=== PATIENT | female | born 1980 ===

== ENCOUNTER 2024-12-01 12:30 | Inpatient (IN) | payer OTHER ==
[~2024-12-01] VITALS: Ht 154.9 cm; Wt 72.6 kg
[2024-12-01] MEDS ORDERED: PROZAC40 MG PO (13:49)
[2024-12-01] MEDS ORDERED: WELLBUTRIN XL300 MG PO (13:50)
[2024-12-01] MEDS ORDERED: NORVASC5 MG PO (13:50)
[2024-12-01] MEDS ORDERED: ATIVAN1 M1 PO (13:51)
[2024-12-01] MEDS ORDERED: RISPERDAL2 MG PO (13:51)
[2024-12-01 13:57] VITALS: BP 131/88
[2024-12-07] MEDS ORDERED: levoFLOXacin IN DEXTROSE 5 % 5 MG/ML PIGGYBAG IV ONE (10:45)
[2024-12-07] MEDS ORDERED: METRONIDAZOLE/SODIUM CHLORIDE 500 MG/100 ML PIGGYBACK IV ONE (10:45)
[2024-12-07] MEDS ORDERED: SUGAMMADEX SODIUM 200 MG/2 ML VIAL IV ONE (12:30)
[2024-12-07] MEDS ORDERED: ONDANSETRON HCL 2 MG/ML VIAL IV PRN (12:45)
[2024-12-07] MEDS ORDERED: MORPHINE SULFATE 4 MG/ML CARTRIDGE IV PRN (12:45)
[2024-12-07] MEDS ORDERED: DEXTROSE 50 % IN WATER 0.5 G/ML DISP.SYRIN IV PRN (12:45)
[2024-12-07] MEDS ORDERED: RINGERS SOLUTION,LACTATED 1,000 ML IV SCH (12:45)
[2024-12-07] MEDS ORDERED: OxyCODONE HCL 5 MG TABLET (ROXICODONE) PO PRN (12:45)
[2024-12-07] MEDS ORDERED: HYOSCYAMINE SULFATE 0.125 MG TAB.SUBL SL SCH (13:00)
[2024-12-07] MEDS ORDERED: SIMETHICONE 125 MG CAPSULE PO SCH (13:00)
[2024-12-07] MEDS ORDERED: MORPHINE SULFATE 4 MG/ML VIAL IV ONE (13:05)
[2024-12-07] MEDS ORDERED: ACETAMINOPHEN 500 MG GEL..CAP PO SCH (14:00)
[2024-12-07 15:39] LABS: HEMATOCRIT 39.1 % (36.0-45.00); MEAN CORPUSCULAR HEMOGLOBIN 28.3 pg (27.00-32.0); MEAN CORPUSCULAR HGB CONC 33.3 g/dl (32.0-36.0); PLATELET COUNT 221 K/uL (150-450); RED CELL DISTRIBUTION WIDTH 13.8 % (11.5-14.5)
[2024-12-07] MEDS ORDERED: GABAPENTIN 300 MG CAPSULE PO SCH (17:00)
[2024-12-07] MEDS ORDERED: METOCLOPRAMIDE HCL 5 MG/ML VIAL IV SCH (17:00)
[2024-12-07] MEDS ORDERED: POLYETHYLENE GLYCOL 3350 17 GM BLIST.PACK PO SCH (17:00)
[2024-12-07 17:32] VITALS: BP 118/76; O2SAT 98
[2024-12-07] MEDS ORDERED: CELECOXIB 200 MG CAPSULE PO SCH (21:00)
[2024-12-07] MEDS ORDERED: LORazepam 1 MG TABLET PO SCH (21:00)
[2024-12-07] MEDS ORDERED: FAMOTIDINE/PF 20 MG/2 ML VIAL IV PUSH SCH (21:00)
[2024-12-08 01:09] VITALS: BP 99/63; O2SAT 99
[2024-12-08 07:01] LABS: HEMOGLOBIN 12.3 g/dL (12.0-15.00); MEAN CORPUSCULAR HEMOGLOBIN 27.9 pg (27.00-32.0); MEAN CORPUSCULAR HGB CONC 32.5 g/dl (32.0-36.0); PLATELET COUNT 220 K/uL (150-450); RED BLOOD COUNT 4.42 M/uL (4.00-6.00); RED CELL DISTRIBUTION WIDTH 13.6 % (11.5-14.5)
[2024-12-08 07:39] LABS: ALBUMIN 2.8 gm/dL (3.4-5.0); CALCIUM 8.2 mg/dL (8.5-10.1); CREATININE SERUM 0.86 mg/dL (0.55-1.02); GFR 71.68; MAGNESIUM 1.9 mg/dL (1.8-2.4); PHOSPHOROUS 3.4 mg/dL (2.5-4.9); POTASSIUM 4.12 mEq/L (3.5-5.1)
[2024-12-08 08:00] VITALS: BP 76/50; O2SAT 98
[2024-12-08] MEDS ORDERED: BUPROPION HCL 150 MG TABLET.SA PO SCH (09:00)
[2024-12-08] MEDS ORDERED: AMLODIPINE BESYLATE 5 MG TABLET PO SCH (09:00)
[2024-12-08] MEDS ORDERED: RISPERIDONE 1 MG TABLET PO SCH (09:00)
[2024-12-08] MEDS ORDERED: FLUOXETINE HCL 20 MG CAPSULE PO SCH (09:00)
[2024-12-08] MEDS ORDERED: LACTOBACILLUS ACIDOPHILUS 1 CAP CAP PO SCH (09:00)
[2024-12-08 12:00] VITALS: BP 72/48; O2SAT 99
[2024-12-08 16:00] VITALS: BP 94/60; O2SAT 99
[2024-12-08] MEDS ORDERED: ENOXAPARIN SODIUM 40 MG/0.4 ML SYRINGE SUBCUTANEO SCH (17:00)
[2024-12-09 00:36] VITALS: BP 113/75; O2SAT 98
[2024-12-09 08:00] VITALS: BP 121/84; O2SAT 95
[2024-12-09] MEDS ORDERED: ENOXAPARIN SODIUM 40 MG/0.4 ML SYRINGE SUBCUTANEO SCH (09:00)
[2024-12-09 16:30] VITALS: BP 104/71; O2SAT 96
[2024-12-10 01:09] VITALS: BP 79/67; O2SAT 95
[2024-12-10 08:00] VITALS: BP 100/69; O2SAT 95
[2024-12-10] MEDS ORDERED: CELECOXIB200 MG PO (09:00)
[2024-12-10] MEDS ORDERED: NEURONTIN300 MG PO (09:01)
[2024-12-10] MEDS ORDERED: GAS RELIEF125 MG PO (09:01)
[2024-12-10] MEDS ORDERED: INTESTINEX680 M1 PO (09:01)
== END 2024-12-10 13:53 | disposition home or self-care (01) | DRG 331 ==
LOC: SURH 12-07 06:39 → O/R 12-07 06:39 → SURG 12-07 12:45 → SURH 12-07 14:27
PROVIDERS: ADMIT Surgery; ATTEND Surgery
PROC: 07BB4ZZ Excision of Mesenteric Lymphatic, Percutaneous Endoscopic Approach (ICD-10-PCS; 2024-12-07)
PROC: 0DBU4ZZ Excision of Omentum, Percutaneous Endoscopic Approach (ICD-10-PCS; 2024-12-07)
PROC: 0DTF4ZZ Resection of Right Large Intestine, Percutaneous Endoscopic Approach (ICD-10-PCS; principal; 2024-12-07 13:15)
DX: C18.2 Malignant neoplasm of ascending colon (principal)